=== PATIENT | female | born 1945 | race Caucasian/White ===

== ENCOUNTER → 2019-02-25 | Outpatient (CLI) | payer OTHER ==
[~2019-02-25] MED LIST: HYDR-3971 PO
== END | disposition home or self-care (01) ==
LOC: RAH 08:05
PROVIDERS: ATTEND Family Medicine
DX: Z12.31 Encounter for screening mammogram for malignant neoplasm of breast (principal); I11.9 Hypertensive heart disease without heart failure; H47.013 Ischemic optic neuropathy, bilateral
CPT/HCPCS: 77067; 93306; 93880

== ENCOUNTER → 2020-01-12 | Outpatient (CLI) | payer OTHER | END | disposition home or self-care (01) | LOC: RAH 12:41 | PROVIDERS: ATTEND Family Medicine | DX: R10.32 Left lower quadrant pain (principal); M47.816 Spondylosis without myelopathy or radiculopathy, lumbar region | CPT/HCPCS: 74018 ==

== ENCOUNTER 2020-07-24 15:51 | Emergency (ER) | payer OTHER ==
[2020-07-24] MEDS ORDERED: TETANUS/DIPHTHERIA TOXOID [ADULT] 0.5 ML VIAL IM ONE (16:09)
[2020-07-24] MEDS ORDERED: CEFAZOLIN SODIUM 1 GM VIAL ONE (16:31)
[2020-07-24 17:25] LABS: BASOPHILS % (AUTO) 0.5 % (0.0-5.0); EOSINOPHILS % (AUTO) 1.8 % (0.0-8.0); HEMATOCRIT 34.9 % (36-48); LYMPHOCYTES % (AUTO) 12.3 % (21.0-51.0); MEAN CORPUSCULAR HEMOGLOBIN 30.2 pg (27.0-33.0); MEAN CORPUSCULAR HGB CONC 32.1 g/dL (32.0-36.0); MEAN CORPUSCULAR VOLUME 94.1 fL (79-99); MONOCYTES % (AUTO) 7.4 % (3.0-13.0); NEUTROPHILS % (AUTO) 77.5 % (40.0-77.0); PLATELET COUNT (AUTO) 212 K/uL (130-400); RED BLOOD CELL COUNT(AUTO) 3.71 MIL/uL (4.00-5.50); RED CELL DISTRIBUTION WIDTH 14.6 % (11.0-15.5); WHITE BLOOD COUNT (AUTO) 5.7 K/uL (4.8-10.8)
[2020-07-24] MEDS ORDERED: LIDOCAINE 1%-EPI 1:100,000 20 ML VIAL IJ ONE (17:25)
[2020-07-24 17:34] LABS: CREATININE 0.8 mg/dL (0.5-1.5); POTASSIUM 3.4 mmol/L (3.5-5.1)
[2020-07-24 17:38] LABS: INR 0.96 (0.85-1.15); PARTIAL THROMBOPLASTIN TIME 27.6 SEC (26.3-35.5); PROTHROMBIN TIME 10.4 SEC (9.6-11.6)
[2020-07-24 17:44] LABS: BILIRUBIN,TOTAL 0.4 mg/dL (0.2-1.0); TOTAL PROTEIN, SERUM 6.4 g/dL (6.0-8.3)
[2020-07-24] MEDS ORDERED: HYDROCODONE/ACETAMINOPHEN 5/325 MG TAB ONE (18:48)
== END 2020-07-24 19:24 | disposition home or self-care (01) ==
LOC: EDH 15:51
DX: S01.91XA Laceration without foreign body of unspecified part of head, initial encounter (principal); S80.01XA Contusion of right knee, initial encounter; I10 Essential (primary) hypertension; W18.39XA Other fall on same level, initial encounter; Y93.01 Activity, walking, marching and hiking; Y92.89 Other specified places as the place of occurrence of the external cause; Y99.8 Other external cause status
CPT/HCPCS: 12054; 36415; 70450; 71045; 72125; 72170; 73562; 80053; 85025; 85610; 85730; 90471; 90714; 96365; 99285; J0690; J3490

== ENCOUNTER 2020-08-09 15:34 | Inpatient (IN) | payer OTHER ==
[~2020-08-09] VITALS: Ht 167.6 cm; Wt 81.6 kg
[2020-08-09 16:28] LABS: BASOPHILS % (AUTO) 0.3 % (0.0-5.0); EOSINOPHILS % (AUTO) 1.4 % (0.0-8.0); HEMATOCRIT 39.2 % (36-48); LYMPHOCYTES % (AUTO) 13.4 % (21.0-51.0); MEAN CORPUSCULAR HGB CONC 32.4 g/dL (32.0-36.0); MEAN CORPUSCULAR VOLUME 95.6 fL (79-99); MONOCYTES % (AUTO) 10.4 % (3.0-13.0); NEUTROPHILS % (AUTO) 73.9 % (40.0-77.0); PLATELET COUNT (AUTO) 498 K/uL (130-400); RED CELL DISTRIBUTION WIDTH 15.7 % (11.0-15.5); WHITE BLOOD COUNT (AUTO) 8.6 K/uL (4.8-10.8)
[2020-08-09 16:37] LABS: APPEARANCE,URINE Clear (CLEAR); BILIRUBIN,URINE Negative (NEGATIVE); COLOR,URINE Dark Yellow (YELLOW); GLUCOSE, URINE (UA) Negative (NEGATIVE); KETONES,URINE Negative (NEGATIVE); LEUKOCYTE ESTERASE ,URINE Negative (NEGATIVE); NITRATE,URINE Negative (NEGATIVE); OCCULT BLOOD,URINE Negative (NEGATIVE); PROTEIN,URINE Negative (NEGATIVE)
[2020-08-09 16:45] LABS: CREATININE 1.1 mg/dL (0.5-1.5); POTASSIUM 4.7 mmol/L (3.5-5.1)
[2020-08-09 16:53] LABS: INR 0.99 (0.85-1.15); PARTIAL THROMBOPLASTIN TIME 30.8 SEC (26.3-35.5); PROTHROMBIN TIME 10.7 SEC (9.6-11.6)
[2020-08-09] MEDS ORDERED: SODIUM CHLORIDE 0.9% 1000ML 1,000 ML IV SCH (16:57)
[2020-08-09] MEDS ORDERED: HYDROCODONE/ACETAMINOPHEN 5/325 MG TAB PO PRN (17:00)
[2020-08-09] MEDS ORDERED: MORPHINE SULFATE 4 MG/1ML SYG IV PRN (17:00)
[2020-08-09] MEDS ORDERED: ACETAMINOPHEN 325 MG TAB PO PRN (17:00)
[2020-08-09] MEDS ORDERED: LACTULOSE 20 GM/30 ML UDCUP PO PRN (17:00)
[2020-08-09] MEDS ORDERED: ONDANSETRON HCL 4 MG/2 ML VIAL IV PRN (17:00)
[2020-08-09 17:20] VITALS: BP 121/70
[2020-08-09 17:27] LABS: ALBUMIN 3.4 g/dL (3.5-5.0); BILIRUBIN,DIRECT 0.2 mg/dL (0.0-0.3); BILIRUBIN,TOTAL 0.7 mg/dL (0.2-1.0); TOTAL PROTEIN, SERUM 7.8 g/dL (6.0-8.3)
[2020-08-09] MEDS ORDERED: PHARMACY COMMUNICATION MISC SCH (17:45)
[2020-08-09 20:04] VITALS: BP 115/52
[2020-08-09] MEDS ORDERED: LISI-613 PO (22:45)
[2020-08-09] MEDS ORDERED: BACL10TA PO (22:45)
[2020-08-09] MEDS ORDERED: NAPR-1023 PO (22:45)
[2020-08-10] VITALS (25 sets, daily range): BP systolic 91–137; BP diastolic 41–64
[2020-08-10] MEDS ORDERED: CEFAZOLIN SODIUM 1 GM VIAL IVP SCH ×2 (06:00→13:15)
[2020-08-10 06:13] LABS: BASOPHILS % (AUTO) 0.9 % (0.0-5.0); HEMATOCRIT 32.8 % (36-48); MEAN CORPUSCULAR HEMOGLOBIN 30.7 pg (27.0-33.0); MEAN CORPUSCULAR HGB CONC 31.7 g/dL (32.0-36.0); MEAN CORPUSCULAR VOLUME 96.8 fL (79-99); MONOCYTES % (AUTO) 13.1 % (3.0-13.0); NEUTROPHILS % (AUTO) 60.1 % (40.0-77.0); PLATELET COUNT (AUTO) 407 K/uL (130-400); RED BLOOD CELL COUNT(AUTO) 3.39 MIL/uL (4.00-5.50); RED CELL DISTRIBUTION WIDTH 15.8 % (11.0-15.5); WHITE BLOOD COUNT (AUTO) 5.6 K/uL (4.8-10.8)
[2020-08-10 06:22] LABS: CREATININE 0.8 mg/dL (0.5-1.5); POTASSIUM 4.3 mmol/L (3.5-5.1)
[2020-08-10] MEDS ORDERED: LACTATED RINGERS 1000ML 1,000 ML IV ONE (08:19)
[2020-08-10] MEDS ORDERED: CEFAZOLIN SODIUM 1 GM VIAL ONE (08:56)
[2020-08-10] MEDS ORDERED: FAMOTIDINE/PF 20 MG/2 ML VIAL IV SCH (09:00)
[2020-08-10] MEDS ORDERED: ENOXAPARIN SODIUM 30 MG/0.3 ML SQ SCH (09:00)
[2020-08-10] MEDS ORDERED: LIDOCAINE PF 2% 5ML ABBOJECT ONE ×2 (09:50→09:58)
[2020-08-10] MEDS ORDERED: DEXAMETHASONE SOD PHOSPHATE 10MG/ML 1ML VIAL ONE (09:50)
[2020-08-10] MEDS ORDERED: SUCCINYLCHOLINE CHLORIDE 20 MG/ML 10 ML VIAL ONE (09:50)
[2020-08-10] MEDS ORDERED: ONDANSETRON HCL 4 MG/2 ML VIAL ONE (09:50)
[2020-08-10] MEDS ORDERED: ROCURONIUM 10MG/1ML SYR 10 MG/ML ML ONE ×2 (09:51→10:41)
[2020-08-10] MEDS ORDERED: NEOSTIGMINE 5MG/5ML SYR IV ONE (09:51)
[2020-08-10] MEDS ORDERED: PROPOFOL 10 MG/ML 20ML VIAL IV ONE (09:51)
[2020-08-10] MEDS ORDERED: MIDAZOLAM HCL 1 MG/ML 2ML VIAL ONE (09:51)
[2020-08-10] MEDS ORDERED: FENTANYL CITRATE PF 50 MCG/1 ML 2ML VIAL ONE ×2 (09:51→12:50)
[2020-08-10] MEDS ORDERED: GLYCOPYRROLATE 1 MG/5 ML SYRINGE ONE (09:51)
[2020-08-10] MEDS ORDERED: ROPIVACAINE 0.5% 5MG/ML 30ML IJ ONE ×2 (10:03→10:14)
[2020-08-10] MEDS ORDERED: EPHEDRINE SULFATE 50 MG/ML AMPULE ONE (11:20)
[2020-08-10] MEDS: ACETAMINOPHEN EXTRA STRENGTH 500 MG TABLET PO SCH ×2 (13:15→20:22)
[2020-08-10] MEDS ORDERED: OXYCODONE HCL 5 MG TAB PO PRN (13:15)
[2020-08-10] MEDS ORDERED: LIDOCAINE HCL-MPF 1% 2ML VIAL IV PRN (13:15)
[2020-08-10] MEDS ORDERED: FERROUS FUMARATE 324 MG TABLET PO PRN (13:15)
[2020-08-10] MEDS ORDERED: CALCIUM CARBONATE 500 MG TABLET PO PRN (13:15)
[2020-08-10] MEDS ORDERED: DIPHENHYDRAMINE HCL 25 MG CAPSULE PO PRN (13:15)
[2020-08-10] MEDS ORDERED: POTASSIUM CHLORIDE 20MEQ/100ML 100 ML IV PRN (13:15)
[2020-08-10] MEDS ORDERED: TRAMADOL HCL 50 MG TABLET PO PRN (13:15)
[2020-08-10] MEDS ORDERED: TEMAZEPAM 15 MG CAPSULE PO PRN (13:15)
[2020-08-10] MEDS ORDERED: POTASSIUM CHLORIDE 10% ELIXIR 20 MEQ/15 ML UDCUP PO PRN (13:15)
[2020-08-10] MEDS ORDERED: POTASSIUM CHLORIDE 20 MEQ ERTAB PO PRN (13:15)
[2020-08-10] MEDS ORDERED: METOCLOPRAMIDE 10 MG/2 ML VIAL ONE (13:38)
[2020-08-10] MEDS ORDERED: MEPERIDINE-PF 25 MG/ML SYG ONE ×2 (13:42→13:58)
--- NOTE | 2020-08-10 16:00 | NUR ---
DCP CM met with pt discussed dc plans. Pt is independent prior to surgery, lives at home alone, has a friend Lina Watson that lives close by. Pt denies any equipments/services. Agreeable to go to a short term rehab prior to dc home as she lives alone. ANNALEE signed for [facility] for standard walker no wheels and 3in1 chair once safe to DC home. DC plan to home w/HH and DME. CM to cont to follow up. Addendum: 08/10/20 at 1647 by JACKSON PERSAUD LVN CM Amended: Links added.
[2020-08-10] MEDS: KETOROLAC TROMETHAMINE 15MG/ML IV PRN (16:19)
[2020-08-10] MEDS: SODIUM CHLORIDE 0.9% 1000ML 1,000 ML IV SCH (16:21)
--- NOTE | 2020-08-10 16:30 | NUR ---
CM Note: [facility] pending approval, [facility] pending approval and delivery for DME once ready to dc from SNF. CM faxed order, clinicals, PASRR, Covid transfer form and result to Jonathan Smiley, confirmation received. Spoke to [facility] aware pending PT eval and treat, will fax notes once available, aware dc tomorrow/once approved. Pt will need transport van vs EMS depending on pt eval. EMS filled out, pending to be faxed w/current date in case needed, primary nurse to call [facility] once pt ready to DC. Primary nurse aware. CM to cont to follow up.
[2020-08-10] MEDS: OXYCODONE HCL 5 MG TAB PO PRN (18:50)
[2020-08-10] MEDS: CEFAZOLIN SODIUM 1 GM VIAL IVP SCH (20:21)
[2020-08-10] MEDS: FAMOTIDINE 20MG TAB 20 MG TAB PO SCH (20:22)
[2020-08-10] MEDS: CELECOXIB 200 MG CAP PO SCH (20:22)
[2020-08-11] MEDS: KETOROLAC TROMETHAMINE 15MG/ML IV PRN (00:03)
[2020-08-11] MEDS: SODIUM CHLORIDE 0.9% 1000ML 1,000 ML IV SCH ×2 (00:03→15:10)
[2020-08-11] MEDS: CEFAZOLIN SODIUM 1 GM VIAL IVP SCH (03:51)
[2020-08-11] MEDS: ACETAMINOPHEN EXTRA STRENGTH 500 MG TABLET PO SCH ×3 (03:57→21:15)
[2020-08-11 04:00] VITALS: BP 108/54
[2020-08-11 04:32] LABS: BASOPHILS % (AUTO) 0.6 % (0.0-5.0); EOSINOPHILS % (AUTO) 2.3 % (0.0-8.0); HEMATOCRIT 30.7 % (36-48); LYMPHOCYTES % (AUTO) 13.2 % (21.0-51.0); MEAN CORPUSCULAR HEMOGLOBIN 30.4 pg (27.0-33.0); MEAN CORPUSCULAR HGB CONC 31.3 g/dL (32.0-36.0); MEAN CORPUSCULAR VOLUME 97.2 fL (79-99); NEUTROPHILS % (AUTO) 71.3 % (40.0-77.0); PLATELET COUNT (AUTO) 348 K/uL (130-400); RED BLOOD CELL COUNT(AUTO) 3.16 MIL/uL (4.00-5.50); RED CELL DISTRIBUTION WIDTH 15.5 % (11.0-15.5); WHITE BLOOD COUNT (AUTO) 7.1 K/uL (4.8-10.8)
[2020-08-11 04:51] LABS: CREATININE 0.8 mg/dL (0.5-1.5); POTASSIUM 4.3 mmol/L (3.5-5.1)
[2020-08-11] MEDS: OXYCODONE HCL 5 MG TAB PO PRN (08:17)
[2020-08-11] MEDS: FAMOTIDINE 20MG TAB 20 MG TAB PO SCH ×2 (08:17→21:34)
[2020-08-11] MEDS: CELECOXIB 200 MG CAP PO SCH ×2 (08:18→21:34)
[2020-08-11] MEDS: POLYETHYLENE GLYCOL 3350 17 GM POWD.PACK PO SCH (08:18)
[2020-08-11] MEDS: ENOXAPARIN SODIUM 40 MG/0.4 ML SYRINGE SQ SCH (08:24)
[2020-08-11 08:31] VITALS: BP 120/61
[2020-08-11] MEDS ORDERED: HYDROMORPHONE PCA 10 MG/50 ML 50 ML IV PRN (09:45)
[2020-08-11] MEDS: PSYLLIUM SEED 1 EACH PACKET PO SCH (11:41)
[2020-08-11 11:47] VITALS: BP 103/62
--- NOTE | 2020-08-11 11:48 | NUR ---
CM Note: [facility] pending approval CM spoke to [place]/Jonathan Smiley, received updated clinicals and PT, forwarded to insurance. Pt pending approval at this time. EMS arranged in case pt will need on DC, [facility] given request for EMS transport, confirmation received. Primary nurse aware. CM to continue to follow up.
[2020-08-11 15:54] VITALS: BP 119/57
[2020-08-11 19:36] VITALS: BP 123/62
[2020-08-11 23:43] VITALS: BP 144/66
[2020-08-12 03:58] VITALS: BP 117/61
[2020-08-12 04:00] LABS: BASOPHILS % (AUTO) 0.7 % (0.0-5.0); EOSINOPHILS % (AUTO) 3.9 % (0.0-8.0); HEMATOCRIT 30.6 % (36-48); LYMPHOCYTES % (AUTO) 15.9 % (21.0-51.0); MEAN CORPUSCULAR HEMOGLOBIN 30.4 pg (27.0-33.0); MEAN CORPUSCULAR VOLUME 98.1 fL (79-99); MONOCYTES % (AUTO) 13.4 % (3.0-13.0); NEUTROPHILS % (AUTO) 65.7 % (40.0-77.0); PLATELET COUNT (AUTO) 321 K/uL (130-400); RED BLOOD CELL COUNT(AUTO) 3.12 MIL/uL (4.00-5.50); RED CELL DISTRIBUTION WIDTH 15.3 % (11.0-15.5); WHITE BLOOD COUNT (AUTO) 5.7 K/uL (4.8-10.8)
[2020-08-12 04:10] LABS: CREATININE 0.8 mg/dL (0.5-1.5); POTASSIUM 4.4 mmol/L (3.5-5.1)
[2020-08-12] MEDS: ACETAMINOPHEN EXTRA STRENGTH 500 MG TABLET PO SCH ×3 (04:48→20:45)
[2020-08-12 07:30] VITALS: BP 128/65
[2020-08-12] MEDS: FAMOTIDINE 20MG TAB 20 MG TAB PO SCH ×2 (08:44→20:43)
[2020-08-12] MEDS: CELECOXIB 200 MG CAP PO SCH ×2 (08:44→20:43)
[2020-08-12] MEDS: ENOXAPARIN SODIUM 40 MG/0.4 ML SYRINGE SQ SCH (08:45)
[2020-08-12] MEDS: POLYETHYLENE GLYCOL 3350 17 GM POWD.PACK PO SCH (08:49)
[2020-08-12] MEDS ORDERED: HYDR-4060 PO (09:38)
[2020-08-12] MEDS ORDERED: AEC81 PO (09:38)
--- NOTE | 2020-08-12 10:50 | NUR ---
Patient transferred back to bed and still requires physical assistance of 1 person.Patient is having difficulty from sit to stand from a regular chair, c/o shoulder pain from previous injuries and her left wrist bothers her from recent fall at home.Need to focus on transfers from bed to chair, sit to stand from the EOB or from the chair holding on to SW for balance and safety.Patient is high risk of falling.Pt. will benefit from SNF placement to improve functional mobility and ADL's at home.Patient is a Toe Touch Weight Bearing to LLE w/ SW. Addendum: 08/12/20 at 1054 by KELVIN PEREZ PT PT Amended: Links added.
--- NOTE | 2020-08-12 10:56 | NUR ---
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 Addendum: 08/12/20 at 1059 by KELVIN PEREZ, PT PT Amended: Links added.
[2020-08-12 11:00] VITALS: BP 117/57
--- NOTE | 2020-08-12 11:00 | NUR ---
correction on note 08/12/2020 at 10:50 - Patient weight bearing is NWB but ca be TTWB as per [place],(Dr. Davis Electrolysist) to right LE, patient is having difficulty in sit to stand and while using SW due to pain from her shoulder from previous injuries and right wrist from her recent fall at home. Addendum: 08/12/20 at 1103 by KELVIN PEREZ, PT PT Amended: Links added.
[2020-08-12] MEDS: PSYLLIUM SEED 1 EACH PACKET PO SCH (13:08)
[2020-08-12] MEDS ORDERED: BISACODYL 5 MG TABLET.DR PO PRN (13:15)
[2020-08-12 16:00] VITALS: BP 99/58
[2020-08-12 20:12] VITALS: BP 106/62
[2020-08-13] VITALS (7 sets, daily range): BP systolic 112–164; BP diastolic 42–78
[2020-08-13] MEDS ORDERED: SODIUM CHLORIDE 0.9% 250 ML IV ONE (02:54)
[2020-08-13 04:23] LABS: MEAN CORPUSCULAR HEMOGLOBIN 30.5 pg (27.0-33.0); MEAN CORPUSCULAR HGB CONC 31.4 g/dL (32.0-36.0); MEAN CORPUSCULAR VOLUME 97.3 fL (79-99); RED BLOOD CELL COUNT(AUTO) 2.98 MIL/uL (4.00-5.50); RED CELL DISTRIBUTION WIDTH 14.9 % (11.0-15.5)
[2020-08-13] MEDS: ACETAMINOPHEN EXTRA STRENGTH 500 MG TABLET PO SCH ×3 (05:15→21:15)
[2020-08-13] MEDS: POLYETHYLENE GLYCOL 3350 17 GM POWD.PACK PO SCH (09:00)
[2020-08-13] MEDS: CELECOXIB 200 MG CAP PO SCH ×2 (09:42→22:08)
[2020-08-13] MEDS: FAMOTIDINE 20MG TAB 20 MG TAB PO SCH ×2 (09:42→22:08)
[2020-08-13] MEDS: ENOXAPARIN SODIUM 40 MG/0.4 ML SYRINGE SQ SCH (09:43)
--- NOTE | 2020-08-13 10:01 | NUR ---
Jonathan Spoke aleta Cm from [facility] to obtain status update regarding ins auth. She mentions that at this time ins auth remains pending. CM to continue to follow.
[2020-08-13] MEDS: PSYLLIUM SEED 1 EACH PACKET PO SCH (12:40)
[2020-08-13] MEDS ORDERED: BISACODYL 10 MG SUPP.RECT RC PRN (13:15)
--- NOTE | 2020-08-13 15:55 | NUR ---
SPOKE TO DR. SERNA REGARDING PATIENT STILL INPATIENT DUE TO INSURANCE AUTHORIZATION STILL PENDING TO TRANSF[facility]. INFORMED DR. SERNA THAT CASE MANAGEMENT ([facility]) STATED AUTHORIZATION MAY NOT BE UNTIL SATURDAY. PER DR. SERNA, PATIENT SHOULD HAVE BEEN DISCHARGE YESTERDAY AND DRESSING AND DRAIN WERE TO BE REMOVED YESTERDAY. DRESSING AND HEMOVAC TO RIGHT KNEE REMOVED TODAY. PATIENT VOICED NO COMPLAINTS AT THIS TIME. PATIENT AWARE OF PENDING INSURANCE AUTHORIZATION.
[2020-08-14] VITALS (7 sets, daily range): BP systolic 107–177; BP diastolic 50–79
[2020-08-14] MEDS: ACETAMINOPHEN EXTRA STRENGTH 500 MG TABLET PO SCH ×3 (06:09→21:00)
[2020-08-14] MEDS: CELECOXIB 200 MG CAP PO SCH ×2 (08:59→20:56)
[2020-08-14] MEDS: FAMOTIDINE 20MG TAB 20 MG TAB PO SCH ×2 (08:59→20:56)
[2020-08-14] MEDS: BACLOFEN 10 MG TABLET PO SCH ×2 (09:00→20:56)
[2020-08-14] MEDS: POLYETHYLENE GLYCOL 3350 17 GM POWD.PACK PO SCH (09:00)
[2020-08-14] MEDS: LISINOPRIL 20 MG TABLET PO SCH (09:00)
[2020-08-14] MEDS: ENOXAPARIN SODIUM 40 MG/0.4 ML SYRINGE SQ SCH (09:01)
[2020-08-14] MEDS: PSYLLIUM SEED 1 EACH PACKET PO SCH (12:00)
[2020-08-15 04:00] VITALS: BP 140/68
[2020-08-15] MEDS: ACETAMINOPHEN EXTRA STRENGTH 500 MG TABLET PO SCH ×2 (04:43→14:43)
[2020-08-15 08:11] VITALS: BP 140/75
[2020-08-15] MEDS: BACLOFEN 10 MG TABLET PO SCH ×2 (09:00→10:34)
[2020-08-15] MEDS: POLYETHYLENE GLYCOL 3350 17 GM POWD.PACK PO SCH (10:33)
[2020-08-15] MEDS: CELECOXIB 200 MG CAP PO SCH (10:34)
[2020-08-15] MEDS: FAMOTIDINE 20MG TAB 20 MG TAB PO SCH (10:34)
[2020-08-15] MEDS: ENOXAPARIN SODIUM 40 MG/0.4 ML SYRINGE SQ SCH (10:34)
[2020-08-15] MEDS: LISINOPRIL 20 MG TABLET PO SCH (10:35)
[2020-08-15] MEDS: PSYLLIUM SEED 1 EACH PACKET PO SCH (10:35)
[2020-08-15 12:29] VITALS: BP 134/68
--- NOTE | 2020-08-15 14:57 | NUR ---
CM Note: [facility] approval CM spoke to [place]/Jonathan Smiley, pt has approval. Pt safe to transfer via [facility] transport Soila sharpe aware. Dr Davis made aware, order entered, per MD follow DC order from Saturday. Primary nurse aware. CM to continue to follow up.
[2020-08-15 16:34] VITALS: BP 137/68
== END 2020-08-15 17:45 | DRG 493 ==
LOC: EDH 15:34 → EDHIP 15:35 → UNDOADMIN 15:35 → EDHIP 17:18 → 3BH 17:18 → EDHIP 08-10 15:35
PROVIDERS: ADMIT Orthopaedic Surgery; ATTEND Orthopaedic Surgery
PROC: 0QSG04Z Reposition Right Tibia with Internal Fixation Device, Open Approach (ICD-10-PCS; principal; 2020-08-10 09:51)
PROC: 3E0T3BZ Introduction of Anesthetic Agent into Peripheral Nerves and Plexi, Percutaneous Approach (ICD-10-PCS; 2020-08-10 09:51)
DX: S82.141A Displaced bicondylar fracture of right tibia, initial encounter for closed fracture (principal); E87.1 Hypo-osmolality and hyponatremia; Z20.828 Contact with and (suspected) exposure to other viral communicable diseases; I10 Essential (primary) hypertension; Y93.89 Activity, other specified; Y92.89 Other specified places as the place of occurrence of the external cause; Y99.8 Other external cause status; Z91.013 Allergy to seafood; Z91.81 History of falling; Z83.3 Family history of diabetes mellitus; Z82.0 Family history of epilepsy and other diseases of the nervous system; Z82.49 Family history of ischemic heart disease and other diseases of the circulatory system
CPT/HCPCS: 36415; 71045; 73590; 80048; 80076; 81003; 85025; 85027; 85610; 85730; 87426; 93005; 97039; G0378; J0330; J0690; J1100; J1170; J1650; J1885; J2001; J2175; J2250; J2405; J2704; J2710; J2765; J2795; J3010; J3490; J7030; J7050; J7120; U0003